=== PATIENT | male | born 1980 ===

== ENCOUNTER 2019-02-11 15:25 | Outpatient (CLI) | payer OTHER ==
[~2019-02-11] VITALS: Ht 172.7 cm; Wt 54.4 kg
== END 2019-02-11 15:45 | disposition home or self-care (01) ==
LOC: OFIC 805 15:25
DX: H90.12 Conductive hearing loss, unilateral, left ear, with unrestricted hearing on the contralateral side (principal); S09.90XA Unspecified injury of head, initial encounter